=== PATIENT | male | born 1930 | race Caucasian/White ===

== ENCOUNTER 2016-11-21 08:59 | Inpatient (IN) | payer OTHER ==
[~2016-11-21] VITALS: Ht 182.9 cm; Wt 88.6 kg
[~2016-11-21 08:59] MED LIST: CHILD ASPIRIN81 M1 PO; CHILDREN'S ASPI81 M1 PO; DEXAMETHASONE4 MG PO; DIOVAN40 MG PO; LEVAQUIN500 MG PO; NEURONTIN300 MG PO; NEURONTIN600 MG PO; PREDNISONE1 MG PO; PREDNISONE20 MG PO; PRILOSEC20 MG PO; PROAIR HFA8.5 GM IH; PROTONIX40 MG PO; VENTOLIN HFA18 GM IH; VITAMIN D31000 UNIT PO; XALATAN2.5 ML BOTH EYES
[2016-11-21 09:36] VITALS: BP 129/62
[2016-11-21 17:39] VITALS: BP 117/63
[2016-11-21 19:45] VITALS: BP 111/53
[2016-11-21 23:38] VITALS: BP 135/81
[2016-11-21 23:40] VITALS: BP 98/53
[2016-11-22 03:53] VITALS: BP 100/62
[2016-11-22 06:15] VITALS: BP 109/59
[2016-11-22 08:04] VITALS: BP 150/69
[2016-11-22] MEDS ORDERED: HYDROCODON-ACE1 EAC7 PO (08:53)
== END 2016-11-22 12:34 | disposition home or self-care (01) | DRG 27 ==
LOC: 3EAST 08:59 → 2SOUTH 08:59 → 3EAST 08:59 → 2SOUTH 10:00 → 3EAST 14:00
PROC: 00B00ZX Excision of Brain, Open Approach, Diagnostic (ICD-10-PCS; principal; 2016-11-21)
DX: C79.31 Secondary malignant neoplasm of brain (principal); C43.9 Malignant melanoma of skin, unspecified; I10 Essential (primary) hypertension; G60.9 Hereditary and idiopathic neuropathy, unspecified; E78.00 Pure hypercholesterolemia, unspecified; N40.0 Benign prostatic hyperplasia without lower urinary tract symptoms; K21.9 Gastro-esophageal reflux disease without esophagitis; Z95.3 Presence of xenogenic heart valve; Z91.041 Radiographic dye allergy status; Z86.73 Personal history of transient ischemic attack (TIA), and cerebral infarction without residual deficits; Z87.891 Personal history of nicotine dependence
CPT/HCPCS: 36415; 70450; 77021; 80048; 85025; 88307; 88341 TC; 88342 TC; C1713; G0378; J0690; J1100; J1170; J2405; J3010; J3480

== ENCOUNTER 2017-01-04 17:11 | Observation (INO) | payer OTHER ==
[~2017-01-04] VITALS: Ht 175.3 cm; Wt 80.5 kg
[~2017-01-04 17:11] MED LIST changes: +HYDROCODON-ACE1 EAC7 PO
[2017-01-04 18:16] LABS: EOSINOPHIL (%) 0.5 % (0-5); EOSINOPHIL COUNT 0.1 K/uL (0-0.3); HEMATOCRIT 42.7 % (38.0-50.0); IMMATURE GRANULOCYTE (%) 4.5 % (0.0-0.7); IMMATURE GRANULOCYTE COUNT 0.7 K/uL; INSTRUMENT ABS NEUTROPHIL CT 12.2 K/uL; LYMPHOCYTE COUNT 0.8 K/uL (1.0-2.8); MCH 26.6 PG (29.0-34.0); MCHC 31.9 G/DL (30.0-36.0); MCV 83.6 FL (86-99); MEAN PLAT.VOLUME 11.5 uM^3 (9.0-12.4); MONOCYTE COUNT 0.7 K/uL (0-0.8); NEUTROPHIL (%) 84.2 % (45-76); NEUTROPHIL COUNT 12.2 K/uL (1.8-6.4); PLATELET COUNT 221 K/uL (156-360); RBC DIS.WIDTH-CV 18.7 % (11.8-14.6); RBC DIS.WIDTH-SD 56.3 % (39-53); RED BLOOD COUNT 5.11 M/uL (4.00-5.50); WHITE BLOOD COUNT 14.6 K/uL (4.1-10.2)
[2017-01-04 18:22] LABS: CHLORIDE 96 mEq/L (99-109); POTASSIUM 4.9 mEq/L (3.7-5.4); SODIUM 131 mEq/L (136-147)
[2017-01-04 18:25] LABS: ANION GAP 12 MEQ/L (2-14)
[2017-01-04 18:27] LABS: GFR ESTIMATE (CALCULATED) 51 mL/min/
[2017-01-04 18:28] LABS: UREA NITROGEN (BUN) 29 mg/dL (9-23)
[2017-01-04 18:29] LABS: GLUCOSE 557 mg/dL (70-99)
[2017-01-04 19:09] LABS: CARBON DIOXIDE (BICARBONATE) 29.1 MEQ/L (20-31)
[2017-01-04 21:07] LABS: POINT-OF-CARE METER ID UU14100415
[2017-01-04 21:09] LABS: ADD MIUA? NO; BILIRUBIN NEGATIVE; BLOOD NEGATIVE; COLOR YELLOW ((YELLOW)); GLUCOSE (STRIP) >=500; KETONES 5; LEUKOCYTES NEGATIVE; NITRITE NEGATIVE; PROTEIN (STRIP) NEGATIVE; SPECIFIC GRAVITY 1.026 (1.000-1.030); UCUL ADDED? NO; UROBILINOGEN 0.2 MG/DL (0.2-1.0)
[2017-01-04] MEDS ORDERED: DEXAMETHASONE2 MG PO (21:37)
[2017-01-04] MEDS ORDERED: TIMOPTIC-0100 DROP/1 BOTH EYES (21:38)
[2017-01-04] MEDS ORDERED: FERROUS SULFAT325 MG PO (21:39)
[2017-01-04 22:18] VITALS: BP 106/59
[2017-01-04 22:27] LABS: POINT-OF-CARE METER ID UU13113831
[2017-01-05 00:10] VITALS: BP 148/78
[2017-01-05 01:21] LABS: CHLORIDE 100 mEq/L (99-109); POTASSIUM 4.3 mEq/L (3.7-5.4); SODIUM 135 mEq/L (136-147)
[2017-01-05 01:24] LABS: GLUCOSE 330 mg/dL (70-99)
[2017-01-05 01:25] LABS: ANION GAP 9 MEQ/L (2-14); TOTAL BILIRUBIN 0.8 mg/dL (0.0-1.0)
[2017-01-05 01:27] LABS: ALKALINE PHOSPHATASE 52 IU/L (3-129); GFR ESTIMATE (CALCULATED) > 59 mL/min/
[2017-01-05 01:28] LABS: UREA NITROGEN (BUN) 25 mg/dL (9-23)
[2017-01-05 02:39] LABS: POINT-OF-CARE METER ID UU14162513
[2017-01-05 04:32] VITALS: BP 144/71
[2017-01-05 05:50] LABS: ALKALINE PHOSPHATASE 43 IU/L (3-129); ANION GAP 9 MEQ/L (2-14); CHLORIDE 101 MEQ/L (99-109); GFR ESTIMATE (CALCULATED) > 59 mL/min/; GLUCOSE 260 mg/dL (70-99); SAMPLE HEMOLYSIS CHECK 0; SAMPLE ICTERIC CHECK 0; SAMPLE LIPEMIA CHECK 0; SODIUM 135 MEQ/L (136-147); TOTAL BILIRUBIN 0.7 MG/DL (0.0-1.0); UREA NITROGEN (BUN) 22 mg/dL (9-23)
[2017-01-05 05:56] LABS: POINT-OF-CARE METER ID UU14162513
[2017-01-05 07:57] LABS: Estimated Average Glucose 309 mg/dL (70-123)
[2017-01-05 08:02] LABS: HEMOGLOBIN A1c (GLYCOHEMOGLOB) 12.4 % HGB (Below 5.7)
[2017-01-05 08:41] VITALS: BP 116/67
[2017-01-05] MEDS ORDERED: LANTUS 3 M100 UNITS1 SC (09:14)
[2017-01-05] MEDS ORDERED: GLUCOMETER MC (09:14)
[2017-01-05] MEDS ORDERED: GLUCAGON1 MG IM (09:14)
[2017-01-05] MEDS ORDERED: BD ULTRA-FINE1 EAC1 MC (09:14)
[2017-01-05 11:32] LABS: POINT-OF-CARE METER ID UU13113831; POINT-OF-CARE USER ID PUTHJD81
[2017-01-05 12:11] VITALS: BP 124/67
[2017-01-05] MEDS ORDERED: LEVEMIR FL100 UNIT/1 SC (13:09)
[2017-01-08 14:53] LABS: POINT-OF-CARE METER ID UU14100415
[2017-01-08 14:53] LABS: POINT-OF-CARE METER ID UU14100415
[2017-01-08 14:53] LABS: POINT-OF-CARE METER ID UU13113778
== END 2017-01-05 14:01 | disposition home or self-care (01) ==
LOC: EME 17:11 → EDOF 20:28 → 5WEST 21:53
PROVIDERS: Emergency Medicine; Hospitalist; Nurse Practitioner Family; Physician Assistant; Physician Assistant Medical
DX: R73.9 Hyperglycemia, unspecified (principal); D72.829 Elevated white blood cell count, unspecified; T38.0X5A Adverse effect of glucocorticoids and synthetic analogues, initial encounter; C43.9 Malignant melanoma of skin, unspecified; C79.31 Secondary malignant neoplasm of brain; C78.00 Secondary malignant neoplasm of unspecified lung; C78.89 Secondary malignant neoplasm of other digestive organs; E86.0 Dehydration; I25.10 Atherosclerotic heart disease of native coronary artery without angina pectoris; I35.0 Nonrheumatic aortic (valve) stenosis; I73.9 Peripheral vascular disease, unspecified; I10 Essential (primary) hypertension; E78.5 Hyperlipidemia, unspecified; Z86.73 Personal history of transient ischemic attack (TIA), and cerebral infarction without residual deficits; Z95.5 Presence of coronary angioplasty implant and graft
CPT/HCPCS: 71010; 71020; 80048 91; 80053; 81003; 82010; 82803; 82948; 83036; 83735; 84100; 85025; 93005; 99281; 99285; G0378; J1815; J3480; J7030; J8540

== ENCOUNTER → 2017-04-14 | Emergency (ER) | payer OTHER ==
[~2017-04-14] VITALS: Ht 175.3 cm; Wt 86.3 kg
[~2017-04-14] MED LIST changes: +ASPIR 8181 M1 PO; +BD ULTRA-FINE1 EAC1 MC; +CEPHALEXIN250 M1 PO; +DEXAMETHASONE2 MG PO; +ELIQUIS5 MG PO; +FERROUS SULFAT325 MG PO; +FLORASTOR250 MG PO; +GLUCAGON1 MG IM; +GLUCOMETER MC; +LANTUS 3 M100 UNITS1 SC; +LEVEMIR FL100 UNIT/1 SC; +METFORMIN HCL500 M4 PO; +TIMOPTIC-0100 DROP/1 BOTH EYES
[2017-04-14 10:00] VITALS: BP 167/98
== END | disposition home or self-care (01) ==
LOC: EME 06:49
DX: S01.01XA Laceration without foreign body of scalp, initial encounter (principal); S81.811A Laceration without foreign body, right lower leg, initial encounter; S51.011A Laceration without foreign body of right elbow, initial encounter; S51.811A Laceration without foreign body of right forearm, initial encounter; W19.XXXA Unspecified fall, initial encounter; Y92.002 Bathroom of unspecified non-institutional (private) residence as the place of occurrence of the external cause; M25.512 Pain in left shoulder; R42 Dizziness and giddiness; Z23 Encounter for immunization; C79.31 Secondary malignant neoplasm of brain; I10 Essential (primary) hypertension; E11.9 Type 2 diabetes mellitus without complications; Z79.84 Long term (current) use of oral hypoglycemic drugs; I48.91 Unspecified atrial fibrillation; Z79.01 Long term (current) use of anticoagulants; Z79.82 Long term (current) use of aspirin; Z87.891 Personal history of nicotine dependence
CPT/HCPCS: 70450; 72125; 73030; 73060; 73080; 73502; 73590; 99281; 99285

== ENCOUNTER 2017-04-28 21:24 | Inpatient (IN) | payer OTHER ==
[~2017-04-28] VITALS: Ht 181.6 cm; Wt 85.6 kg
[2017-04-28 22:07] LABS: HEMATOCRIT 44.5 % (38.0-50.0); MCH 28.3 PG (29.0-34.0); MCHC 31.9 G/DL (30.0-36.0); MCV 88.6 FL (86-99); MEAN PLAT.VOLUME 11.6 uM^3 (9.0-12.4); PLATELET COUNT 191 K/uL (156-360); RBC DIS.WIDTH-CV 14.1 % (11.8-14.6); RBC DIS.WIDTH-SD 45.3 % (39-53); RED BLOOD COUNT 5.02 M/uL (4.00-5.50); WHITE BLOOD COUNT 6.9 K/uL (4.1-10.2)
[2017-04-28 22:21] LABS: CHLORIDE 106 mEq/L (99-109); POTASSIUM 4.8 mEq/L (3.7-5.4); SODIUM 141 mEq/L (136-147)
[2017-04-28 22:23] LABS: GLUCOSE 126 mg/dL (70-99)
[2017-04-28 22:24] LABS: ANION GAP 11 MEQ/L (2-14)
[2017-04-28 22:25] LABS: TOTAL BILIRUBIN 0.7 mg/dL (0.0-1.0)
[2017-04-28 22:26] LABS: ALKALINE PHOSPHATASE 63 IU/L (3-129)
[2017-04-28 22:27] LABS: GFR ESTIMATE (CALCULATED) 56 mL/min/
[2017-04-28 22:28] LABS: UREA NITROGEN (BUN) 16 mg/dL (9-23)
[2017-04-29 02:17] VITALS: BP 139/62
[2017-04-29 07:41] VITALS: BP 136/72
[2017-04-29 15:38] VITALS: BP 132/80
[2017-04-30 00:25] VITALS: BP 144/66
[2017-04-30 05:58] LABS: BASOPHIL COUNT 0.1 K/uL (0-0.1); EOSINOPHIL (%) 2.8 % (0-5); EOSINOPHIL COUNT 0.2 K/uL (0-0.3); HEMATOCRIT 40.3 % (38.0-50.0); IMMATURE GRANULOCYTE (%) 0.6 % (0.0-0.7); INSTRUMENT ABS NEUTROPHIL CT 4.3 K/uL; LYMPHOCYTE COUNT 1.6 K/uL (1.0-2.8); MCH 28.6 PG (29.0-34.0); MCHC 32.5 G/DL (30.0-36.0); MEAN PLAT.VOLUME 11.5 uM^3 (9.0-12.4); MONOCYTE (%) 11.9 % (3-12); MONOCYTE COUNT 0.8 K/uL (0-0.8); NEUTROPHIL (%) 61.2 % (45-76); NEUTROPHIL COUNT 4.3 K/uL (1.8-6.4); PLATELET COUNT 175 K/uL (156-360); RBC DIS.WIDTH-SD 44.8 % (39-53); RED BLOOD COUNT 4.58 M/uL (4.00-5.50)
[2017-04-30 06:18] LABS: ANION GAP 9 MEQ/L (2-14); CHLORIDE 104 MEQ/L (99-109); GFR ESTIMATE (CALCULATED) 56 mL/min/; GLUCOSE 120 mg/dL (70-99); POTASSIUM 4.2 MEQ/L (3.7-5.4); SAMPLE HEMOLYSIS CHECK 0; SAMPLE ICTERIC CHECK 0; SAMPLE LIPEMIA CHECK 0; SODIUM 140 MEQ/L (136-147); UREA NITROGEN (BUN) 17 mg/dL (9-23)
[2017-04-30 07:15] VITALS: BP 122/64
[2017-04-30] MEDS ORDERED: KEFLEX500 MG PO (14:54)
[2017-04-30] MEDS ORDERED: BACTROBAN OINTM22 GM TP (14:54)
[2017-04-30] MEDS ORDERED: METFORMIN HCL1000 MG PO (14:55)
[2017-04-30 15:36] VITALS: BP 135/78
[2017-04-30 16:12] LABS: POINT-OF-CARE METER ID UU13113725
[2017-05-01 02:05] VITALS: BP 137/65
[2017-05-01 06:14] LABS: POINT-OF-CARE METER ID UU13113725
[2017-05-01 06:38] VITALS: BP 135/70
[2017-05-01 06:49] LABS: BASOPHIL COUNT 0.1 K/uL (0-0.1); EOSINOPHIL (%) 3.3 % (0-5); EOSINOPHIL COUNT 0.2 K/uL (0-0.3); IMMATURE GRANULOCYTE (%) 0.3 % (0.0-0.7); INSTRUMENT ABS NEUTROPHIL CT 3.7 K/uL; LYMPHOCYTE COUNT 1.7 K/uL (1.0-2.8); MCV 87.9 FL (86-99); MEAN PLAT.VOLUME 11.7 uM^3 (9.0-12.4); MONOCYTE (%) 11.4 % (3-12); MONOCYTE COUNT 0.7 K/uL (0-0.8); NEUTROPHIL (%) 57.3 % (45-76); NEUTROPHIL COUNT 3.7 K/uL (1.8-6.4); PLATELET COUNT 172 K/uL (156-360); RBC DIS.WIDTH-CV 14.2 % (11.8-14.6); RBC DIS.WIDTH-SD 45.5 % (39-53); RED BLOOD COUNT 4.55 M/uL (4.00-5.50); WHITE BLOOD COUNT 6.4 K/uL (4.1-10.2)
[2017-05-01 07:09] LABS: ANION GAP 9 MEQ/L (2-14); CHLORIDE 105 MEQ/L (99-109); GFR ESTIMATE (CALCULATED) 56 mL/min/; GLUCOSE 99 mg/dL (70-99); POTASSIUM 4.4 MEQ/L (3.7-5.4); SAMPLE HEMOLYSIS CHECK 0; SAMPLE ICTERIC CHECK 0; SAMPLE LIPEMIA CHECK 0; SODIUM 140 MEQ/L (136-147); UREA NITROGEN (BUN) 17 mg/dL (9-23)
== END 2017-05-01 13:24 | disposition home or self-care (01) | DRG 603 ==
LOC: EME 21:24 → EDOF 04-29 00:30 → 5EAST 04-29 00:30 → ENRESERV 04-29 00:40 → 5EAST 04-29 02:00 → ENPENDDIS 05-01 → 5EAST 05-01 13:24
PROVIDERS: Hospitalist; Internal Medicine; Physician Assistant
DX: L03.115 Cellulitis of right lower limb (principal); C79.31 Secondary malignant neoplasm of brain; C90.00 Multiple myeloma not having achieved remission; T81.89XA Other complications of procedures, not elsewhere classified, initial encounter; C43.59 Malignant melanoma of other part of trunk; B95.61 Methicillin susceptible Staphylococcus aureus infection as the cause of diseases classified elsewhere; D89.9 Disorder involving the immune mechanism, unspecified; S81.811D Laceration without foreign body, right lower leg, subsequent encounter; I25.10 Atherosclerotic heart disease of native coronary artery without angina pectoris; E11.9 Type 2 diabetes mellitus without complications; Z66 Do not resuscitate; E78.5 Hyperlipidemia, unspecified; I10 Essential (primary) hypertension; Z96.651 Presence of right artificial knee joint; H40.9 Unspecified glaucoma; I73.9 Peripheral vascular disease, unspecified; I87.2 Venous insufficiency (chronic) (peripheral); S01.01XD Laceration without foreign body of scalp, subsequent encounter; I87.8 Other specified disorders of veins; K21.9 Gastro-esophageal reflux disease without esophagitis; Z87.891 Personal history of nicotine dependence; W01.10XD Fall on same level from slipping, tripping and stumbling with subsequent striking against unspecified object, subsequent encounter; Z91.81 History of falling; Y92.012 Bathroom of single-family (private) house as the place of occurrence of the external cause; Z95.3 Presence of xenogenic heart valve; Z95.2 Presence of prosthetic heart valve; Z86.73 Personal history of transient ischemic attack (TIA), and cerebral infarction without residual deficits; Z79.01 Long term (current) use of anticoagulants; Z83.3 Family history of diabetes mellitus
CPT/HCPCS: 36415; 80048; 80053; 82533; 82948; 83605; 84443; 85025; 85027; 87040; 87070; 87075; 87077; 87147; 87186; 87205; 93971; 99281; 99284; A6260; J7050; S0032